=== PATIENT | female | born 1940 | race Caucasian/White ===

== ENCOUNTER → 2016-10-21 | Outpatient (CLI) | payer MEDICARE, BC ==
--- NOTE | 2016-10-22 08:49 | MM ---
Reason for exam: screening (asymptomatic). Baseline mammogram. History: Patient is postmenopausal. Physical Findings: Nurse Summary: 1 x 1cm nodule in the left breast at 1 o'clock (nurse ts). MG 3D Screening Mammo W/Cad Bilateral CC and MLO view(s) were taken. No prior studies available for comparison. There are scattered fibroglandular densities. Focal asymmetry in the left upper outer quadrant near palpable. This finding is changed when compared with previous exams. These results were verbally communicated with the patient and result sheet given to the patient on 10/21/16. ASSESSMENT: Incomplete: need additional imaging evaluation, BI-RAD 0 RECOMMENDATION: Ultrasound of the left breast.
--- NOTE | 2016-10-22 08:57 | USB ---
Reason for exam: additional evaluation requested from abnormal screening. History: Patient is postmenopausal. US Breast Workup Limited LT Left breast ultrasound demonstrates no cystic or solid lesion seen. These results were verbally communicated with the patient and result sheet given to the patient on 10/21/16. ASSESSMENT: Negative, BI-RAD 1 RECOMMENDATION: Follow-up diagnostic mammogram of the left breast in 6 months.
== END | disposition home or self-care (01) ==
LOC: RADMAMWWP 13:36
PROVIDERS: ATTEND Family Medicine
DX: Z12.31 Encounter for screening mammogram for malignant neoplasm of breast (principal)
CPT/HCPCS: 77063; 76642; G0202

== ENCOUNTER → 2017-04-28 | Outpatient (CLI) | payer MEDICARE, BC ==
--- NOTE | 2017-04-28 11:20 | EST ---
EXERCISE STRESS DATE OF SERVICE: 04/28/2017 AGE: 76 SEX: Female. HT: 67" WT: 156 PROTOCOL: Tan STAGE: II DURATION OF EXERCISE: 5 minutes HEART RATE REST: 97 BLOOD PRESSURE REST: 123/81 MAXIMUM HEART RATE ACHIEVED: 134 MAXIMUM BLOOD PRESSURE: 182/72 85% MPHR: 122 100% MPHR: 144 METS: 6 INDICATIONS: Shortness of breath. CLINICAL INFORMATION: Baseline EKG shows sinus rhythm, normal axis, normal intervals. Patient exercised on Tan protocol for a total of 5 minutes achieving 6 METs and 93% of predicted maximal heart rate without chest pain or diagnostic ST-segment depression. CONCLUSIONS: 1. Average exercise tolerance. 2. Negative stress test by EKG criteria. MMODL / IJN: [id number] /
== END | disposition home or self-care (01) ==
LOC: RADNMMAIN 10:07
PROVIDERS: ATTEND Family Medicine
DX: R06.00 Dyspnea, unspecified (principal)
CPT/HCPCS: 93017

== ENCOUNTER → 2017-05-03 | Outpatient (CLI) | payer MEDICARE, BC ==
--- NOTE | 2017-05-03 14:21 | MM ---
Reason for exam: follow-up at short interval from prior study. Last mammogram was performed 6 months ago. History: Patient is postmenopausal. Physical Findings: Nurse did not find any significant physical abnormalities on exam. MG 3D Diag Mammo W/Cad LT CC, MLO, spot compression MLO, and ML view(s) were taken of the left breast. Prior study comparison: October 21, 2016, bilateral MG 3d screening mammo w/cad. There are scattered fibroglandular densities. Global asymmetry persists in the left upper outer quadrant at a middle depth as compared to prior exam. However, this completely disperses on the second spot MLO view. These results were verbally communicated with the patient and result sheet given to the patient on 05/03/17. ASSESSMENT: Negative, BI-RAD 1 RECOMMENDATION: Return to routine screening mammogram schedule for both breasts. Back on schedule.
== END ==
LOC: RADMAMWWP 12:58
PROVIDERS: ATTEND Family Medicine
DX: R92.8 Other abnormal and inconclusive findings on diagnostic imaging of breast (principal)
CPT/HCPCS: G0206; G0279

== ENCOUNTER → 2018-08-31 | Outpatient (CLI) | payer MEDICARE, OTHER ==
--- NOTE | 2018-08-31 16:02 | BD ---
EXAMINATION TYPE: Axial Bone Density DATE OF EXAM: 08/31/2018 CLINICAL HISTORY: Height: 64.75 Weight: 148 FRAX RISK QUESTIONS: Alcohol (3 or more units per day): no Family History (Parent hip fracture): no Glucocorticoids (More than 3mos): no (Ex: prednisone, prednisolone, methylprednisolone, dexamethasone, and hydrocortisone). History of Fracture in Adulthood: no Secondary Osteoporosis: 1. Type 1 Diabetes: no 2. Hyperthyroidism: no 3. Menopause before 45: no, 46 4. Malnutrition: no 5. Chronic liver disease: no Rheumatoid Arthritis: no Current Tobacco Use: no RISK FACTORS HISTORY OF: Family History of Osteoporosis: no Active: yes Diet low in dairy products/other sources of calcium: no Postmenopausal woman: yes Take estrogen and/or progesterone medications: no Lost more than 2 inches in height since high school: possibly, states height was about 67.5 inches at one time Frequent falls: no Poor Health: no Hyperparathyroidism: no Adrenal Insufficiency: no MEDICATIONS: Thyroid Medications: no Osteoporosis Medications:no Additional Medications: calcium & Vitamin D Additional History: EXAM MEASUREMENTS: Bone mineral densitometry was performed using the [employer] System. Bone mineral density as measured about the Lumbar spine is: ----- L1-L4(G/cm2): 1.234 T Score Values are as follows: ----- L2: 0.4 ----- L3: 0.8 ----- L4: 0.7 ----- L1-L4: 0.5 Bone mineral density has: Increased 5.4% since study of: 08/06/2004 Bone mineral density about the R hip (g/cm2): 0.905 Bone mineral density about the L hip (g/cm2): 0.888 T Score values are as follows: -----R Neck: -1.0 -----L Neck: -1.1 -----R Total: -0.8 -----L Total: -0.3 Bone mineral density has: Decreased -10.1% since study of: 08/06/2004 IMPRESSION: No evidence for osteoporosis or osteopenia. NOTE: T-SCORE=SD OF THE YOUNG ADULT MEAN.
== END | disposition home or self-care (01) ==
LOC: RADBDWWP 11:03
PROVIDERS: ATTEND Family Medicine
DX: Z13.820 Encounter for screening for osteoporosis (principal)
CPT/HCPCS: 77080

== ENCOUNTER 2024-08-01 06:04 | Emergency (ER) | payer MEDICARE ==
--- NOTE | 2024-08-01 06:37 | ED ---
Weakness HPI - General Chief complaint: Weakness Stated complaint: Tremors Time Seen by Provider: 08/01/24 06:13 Source: patient, family, RN notes reviewed Mode of arrival: ambulatory Limitations: no limitations - History of Present Illness Initial comments: Patient is a 84 year old female presenting with weakness x 1-2 weeks. She states that she has been having lower abdominal pain that she describes as "the feeling when you get a phone call in the middle of the night and you don't know whats wrong", shaking, and chills. She states that she has had decreased appetite but has tried to have at least 1 water bottle a day, but that it is difficult. She notes that she has had this feeling before a few years ago and she had an "extensive UTI". She states she was seen at her PCP yesterday and had basic labs drawn and her "magenisum was low" and was told to take a supplement and she should "feel better instantly", but it did not help her symptoms. She denies fever, nausea, vomiting, diarrhea, constipation, chest pain, shortness of breath, back pain, dysuria, or urinary changes. She denies taking any prescription medications, or recent abdominal surgeries. - Related Data Home Medications Medication Instructions Recorded Confirmed Aspirin 81 mg PO DAILY 03/09/14 03/09/14 Ferrous Sulfate [Feosol] mg PO DAILY@1200 03/09/14 03/09/14 Multivitamins, Thera [Multivitamin] 1 each PO DAILY@1200 03/09/14 03/09/14 [place] Oil/[place]-3 Fatty Acids each PO 03/09/14 03/09/14 [Fish Oil 500 mg Softgel] Previous Rx's Medication Instructions Recorded Nitrofurantoin Monohyd/M-Cryst 100 mg PO Q12HR #20 cap 03/09/14 [Macrobid] Cephalexin [Keflex] 500 mg PO Q8HR #21 cap 08/01/24 Allergies Allergy/AdvReac Type Severity Reaction Status Date / Time No Known Allergies Allergy Verified 08/01/24 06:12 Review of Systems ROS Statement: Those systems with pertinent positive or pertinent negative responses have been documented in the HPI. ROS Other: All systems not noted in ROS Statement are negative. Past Medical History Past Medical History: No Reported History History of Any Multi-Drug Resistant Organisms: None Reported Past Surgical History: Adenoidectomy, Tonsillectomy Past Psychological History: No Psychological Hx Reported Smoking Status: Never smoker Past Alcohol Use History: None Reported Past Drug Use History: None Reported General Exam Limitations: no limitations General appearance: alert, in no apparent distress Head exam: Present: atraumatic, normocephalic, normal inspection Eye exam: Present: normal appearance, PERRL, EOMI. Absent: scleral icterus, conjunctival injection, periorbital swelling ENT exam: Present: normal exam, normal oropharynx, mucous membranes moist Neck exam: Present: normal inspection, full ROM. Absent: tenderness, meningismus, lymphadenopathy Respiratory exam: Present: normal lung sounds bilaterally. Absent: respiratory distress, wheezes, rales, rhonchi, stridor Cardiovascular Exam: Present: regular rate, normal rhythm, normal heart sounds. Absent: systolic murmur, diastolic murmur, rubs, gallop, clicks GI/Abdominal exam: Present: soft, tenderness (suprapubic ), normal bowel sounds. Absent: distended, guarding, rebound, rigid Back exam: Absent: CVA tenderness (R), CVA tenderness (L) Neurological exam: Present: alert, oriented X3, CN II-XII intact Psychiatric exam: Present: normal affect, normal mood Skin exam: Present: warm, dry, intact, normal color. Absent: rash Course Vital Signs 08/01/24 08/01/24 06:07 07:50 Temperature 97.6 F Pulse Rate 76 Respiratory 16 15 Rate Blood Pressure 148/79 O2 Sat by Pulse 99 Oximetry EKG Findings - EKG Comments: EKG Findings:: EKG performed at 6: 59 sinus rhythm first-degree block rate of 72 CA 226 QRS 77 QT/QTc 376/399 - EKG Results: EKG: interpreted by ERMD Medical Decision Making - Medical Decision Making Was pt. sent in by a medical professional or institution (, PA, CARDIAC/VASCULAR SONOGRAPHER, urgent care, hospital, or senior care...) When possible be specific @ -No Did you speak to anyone other than the patient for history (EMS, parent, family, police, friend...)? What history was obtained from this source @ -No Did you review nursing and triage notes (agree or disagree)? Why? @ -I reviewed and agree with nursing and triage notes Were old charts reviewed (outside hosp., previous admission, EMS record, old EKG, old radiological studies, urgent care reports/EKG's, senior care records)? Report findings @ -No old charts were reviewed Differential Diagnosis (chest pain, altered mental status, abdominal pain women, abdominal pain men, vaginal bleeding, weakness, fever, dyspnea, syncope, headache, dizziness, GI bleed, back pain, seizure, CVA, palpatations, mental health, musculoskeletal)? @ -Differential Abdominal Pain Women: Appendicitis, Cholecystitis, diverticulosis, ischemic bowel, pancreatitis, hepatitis, UTI, gastroenteritis, AAA, incarcerated hernia, bowel obstruction, constipation, inflammatory bowel, hepatitis, peptic ulcer disease, splenic infarction, perforated viscus, vulvitis, ovarian torsion, PID, kidney stone, placenta abruption, this is not meant to be an all-inclusive list EKG interpreted by me (3pts min.). @ -As above X-rays interpreted by me (1pt min.). @ -None done CT interpreted by me (1pt min.). @ -None done U/S interpreted by me (1pt. min.). @ -None done What testing was considered but not performed or refused? (CT, X-rays, U/S, labs)? Why? @ -None What meds were considered but not given or refused? Why? @ -None Did you discuss the management of the patient with other professionals (professionals i.e. , PA, CARDIAC/VASCULAR SONOGRAPHER, lab, RT, psych nurse, aids social worker, school resource officer, te acher, grants officer, bottle caser)? Give summary @ -No Was smoking cessation discussed for >3mins.? @ -No Was critical care preformed (if so, how long)? @ -No Were there social determinants of health that impacted care today? How? (Homelessness, low income, unemployed, alcoholism, drug addiction, transportation, low edu. Level, literacy, decrease access to med. care, intermediate, rehab)? @ -No Was there de-escalation of care discussed even if they declined (Discuss DNR or withdrawal of care, Hospice)? DNR status @ -No What co-morbidities impacted this encounter? (DM, HTN, Smoking, COPD, CAD, Cancer, CVA, ARF, Chemo, Hep., AIDS, mental health diagnosis, sleep apnea, morbid obesity)? @ -None Was patient admitted / discharged? Hospital course, mention meds given and route, prescriptions, significant lab abnormalities, going to OR and other pertinent info. @ -Discharge patient has evidence of UTI, laboratory studies otherwise unremarkable vitals are stable EKG unremarkable. Patient discharged after Rocephin on Keflex. Undiagnosed new problem with uncertain prognosis? @ -No Drug Therapy requiring intensive monitoring for toxicity (Heparin, Nitro, Insulin, Cardizem)? @ -No Were any procedures done? @ -No Diagnosis/symptom? @ -UTI Acute, or Chronic, or Acute on Chronic? @ -Acute Uncomplicated (without systemic symptoms) or Complicated (systemic symptoms)? @ -Uncomplicated Side effects of treatment? @ -No Exacerbation, Progression, or Severe Exacerbation? @ -No Poses a threat to life or bodily function? How? (Chest pain, USA, MT, pneumonia, PE, COPD, DKA, ARF, appy, cholecystitis, CVA, Diverticulitis, Homicidal, Suicidal, threat to staff... and all critical care pts) @ -No - Lab Data Result diagrams: 08/01/24 06:55 08/01/24 06:55 Lab Results 08/01/24 08/01/24 08/01/24 Range/Units 06:55 06:55 06:55 WBC 6.8 (3.8-10.6) k/uL RBC 4.38 (3.80-5.40) m/uL Hgb 13.3 (11.4-16.0) gm/dL Hct 41.2 (34.0-46.0) % MCV 94.0 (80.0-100.0) fL MCH 30.5 (25.0-35.0) pg MCHC 32.4 (31.0-37.0) g/dL RDW 12.7 (11.5-15.5) % Plt Count 345 (150-450) k/uL MPV 8.8 Neutrophils % 64 % Lymphocytes % 22 % Monocytes % 8 % Eosinophils % 2 % Basophils % 1 % Neutrophils # 4.4 (1.3-7.7) k/uL Lymphocytes # 1.5 (1.0-4.8) k/uL Monocytes # 0.5 (0-1.0) k/uL Eosinophils # 0.1 (0-0.7) k/uL Basophils # 0.1 (0-0.2) k/uL Sodium 137 (137-145) mmol/L Potassium 4.2 (3.5-5.1) mmol/L Chloride 103 (98-107) mmol/L Carbon Dioxide 29 (22-30) mmol/L Anion Gap 5 mmol/L BUN 24 H (7-17) mg/dL Creatinine 0.75 (0.52-1.04) mg/dL Est GFR (CKD-EPI)AfAm 85 (>60 ml/min/1.73 sqM) Est GFR (CKD-EPI)NonAf 74 (>60 ml/min/1.73 sqM) Glucose 112 H (74-99) mg/dL Calcium 9.6 (8.4-10.2) mg/dL Magnesium 2.2 (1.6-2.3) mg/dL Total Bilirubin 0.8 (0.2-1.3) mg/dL AST 23 (14-36) U/L ALT 14 (4-34) U/L Alkaline Phosphatase 71 (38-126) U/L Total Protein 6.7 (6.3-8.2) g/dL Albumin 4.0 (3.5-5.0) g/dL Urine Color Urine Appearance (Clear) Urine pH (5.0-8.0) Ur Specific [place] (1.001-1.035) Urine Protein (Negative) Urine Glucose (UA) (Negative) Urine Ketones (Negative) Urine Blood (Negative) Urine Nitrite (Negative) Urine Bilirubin (Negative) Urine Urobilinogen (<2.0) mg/dL Ur Leukocyte Esterase (Negative) Urine RBC (0-5) /hpf Urine WBC (0-5) /hpf Urine WBC Clumps (None) /hpf Ur Squamous Epith Cells (0-4) /hpf Urine Bacteria (None) /hpf Urine Mucus (None) /hpf Influenza Type A (PCR) Not Detected (Not Detectd) Influenza Type B (PCR) Not Detected (Not Detectd) RSV (PCR) Not Detected (Not Detectd) SARS-CoV-2 (PCR) Not Detected (Not Detectd) 08/01/24 Range/Units 07:50 WBC (3.8-10.6) k/uL RBC (3.80-5.40) m/uL Hgb (11.4-16.0) gm/dL Hct (34.0-46.0) % MCV (80.0-100.0) fL MCH (25.0-35.0) pg MCHC (31.0-37.0) g/dL RDW (11.5-15.5) % Plt Count (150-450) k/uL MPV Neutrophils % % Lymphocytes % % Monocytes % % Eosinophils % % Basophils % % Neutrophils # (1.3-7.7) k/uL Lymphocytes # (1.0-4.8) k/uL Monocytes # (0-1.0) k/uL Eosinophils # (0-0.7) k/uL Basophils # (0-0.2) k/uL Sodium (137-145) mmol/L Potassium (3.5-5.1) mmol/L Chloride (98-107) mmol/L Carbon Dioxide (22-30) mmol/L Anion Gap mmol/L BUN (7-17) mg/dL Creatinine (0.52-1.04) mg/dL Est GFR (CKD-EPI)AfAm (>60 ml/min/1.73 sqM) Est GFR (CKD-EPI)NonAf (>60 ml/min/1.73 sqM) Glucose (74-99) mg/dL Calcium (8.4-10.2) mg/dL Magnesium (1.6-2.3) mg/dL Total Bilirubin (0.2-1.3) mg/dL AST (14-36) U/L ALT (4-34) U/L Alkaline Phosphatase (38-126) U/L Total Protein (6.3-8.2) g/dL Albumin (3.5-5.0) g/dL Urine Color Colorless Urine Appearance Cloudy H (Clear) Urine pH 7.5 (5.0-8.0) Ur Specific [place] 1.009 (1.001-1.035) Urine Protein Negative (Negative) Urine Glucose (UA) Negative (Negative) Urine Ketones Negative (Negative) Urine Blood Negative (Negative) Urine Nitrite Positive H (Negative) Urine Bilirubin Negative (Negative) Urine Urobilinogen <2.0 (<2.0) mg/dL Ur Leukocyte Esterase Large H (Negative) Urine RBC 4 (0-5) /hpf Urine WBC 124 H (0-5) /hpf Urine WBC Clumps Rare H (None) /hpf Ur Squamous Epith Cells <1 (0-4) /hpf Urine Bacteria Many H (None) /hpf Urine Mucus Rare H (None) /hpf Influenza Type A (PCR) (Not Detectd) Influenza Type B (PCR) (Not Detectd) RSV (PCR) (Not Detectd) SARS-CoV-2 (PCR) (Not Detectd) Disposition Clinical Impression: UTI (urinary tract infection) Disposition: HOME SELF-CARE Condition: Stable Instructions (If sedation given, give patient instructions): Urinary Tract Infection in Women (ED) Additional Instructions: Please return to the Emergency Department if symptoms worsen or any other concerns. Prescriptions: Cephalexin [Keflex] 500 mg PO Q8HR #21 cap Is patient prescribed a controlled substance at d/c from ED?: No Referrals: Navid Maldonado DO [Primary Care Provider] - 1-2 days Time of Disposition: 08:15
[2024-08-01 07:16] LABS: Basophils # (A) 0.1 k/uL (0-0.2); Basophils % (A) 1 %; Eosinophils # (A) 0.1 k/uL (0-0.7); Eosinophils % (A) 2 %; HCT 41.2 % (34.0-46.0); HGB 13.3 gm/dL (11.4-16.0); Lymphocytes # (A) 1.5 k/uL (1.0-4.8); Lymphocytes % (A) 22 %; MCH 30.5 pg (25.0-35.0); MCHC 32.4 g/dL (31.0-37.0); Mean Platelet Volume 8.8; Monocytes # (A) 0.5 k/uL (0-1.0); Monocytes % (A) 8 %; Neutrophils # (A) 4.4 k/uL (1.3-7.7); Neutrophils % (A) 64 %; Platelet Count 345 k/uL (150-450); RBC 4.38 m/uL (3.80-5.40); RDW 12.7 % (11.5-15.5); WBC 6.8 k/uL (3.8-10.6)
[2024-08-01 07:34] LABS: ALT 14 U/L (4-34); AST 23 U/L (14-36); African American GFR (CKD) 85 (>60 ml/min/1.73 sqM); Alkaline Phosphatase 71 U/L (38-126); Anion Gap 5 mmol/L; Blood Urea Nitrogen 24 mg/dL (7-17); Calcium 9.6 mg/dL (8.4-10.2); Carbon Dioxide 29 mmol/L (22-30); Chloride 103 mmol/L (98-107); Glucose 112 mg/dL (74-99); Magnesium 2.2 mg/dL (1.6-2.3); Non-African American GFR(CKD) 74 (>60 ml/min/1.73 sqM); Potassium 4.2 mmol/L (3.5-5.1); Sodium 137 mmol/L (137-145); Total Bilirubin 0.8 mg/dL (0.2-1.3); Total Protein 6.7 g/dL (6.3-8.2)
[2024-08-01] MEDS: SODIUM CHLORIDE 0.9% 1,000 ML IV STA (07:47)
[2024-08-01 08:10] LABS: Appearance,Urine Cloudy (Clear); Bacteria,Urine Many /hpf; Bilirubin,Urine Negative (Negative); Blood,Urine Negative (Negative); Color,Urine Colorless; Glucose,Urine (UA) Negative (Negative); Ketones,Urine Negative (Negative); Leukocyte Esterase,Urine Large (Negative); Mucus,Urine Rare /hpf; Nitrite,Urine Positive (Negative); PH, Urine 7.5 (5.0-8.0); Protein,Urine Negative (Negative); RBC,Urine 4 /hpf (0-5); Specific Gravity,Urine 1.009 (1.001-1.035); Squamous Epithelial Cell,Urine <1 /hpf (0-4); Urobilinogen,Urine <2.0 mg/dL (<2.0); WBC,Urine 124 /hpf (0-5)
[2024-08-01] MEDS: cefTRIAXone IN SWFI 1,000 MG/10 ML SYRINGE IVP STA (08:34)
[2024-08-01 09:12] VITALS: BP 156/79; PULSE 70; RESP 20; TEMP 97.7
== END 2024-08-01 08:50 | disposition home or self-care (01) ==
LOC: EC 06:04
DX: N39.0 Urinary tract infection, site not specified (principal)
CPT/HCPCS: 36415; 93005; 80053; 83735; 85025; 81001; 87086; 87636; 99285; 96374; 96361; J0696

== ENCOUNTER 2024-08-03 01:25 | Observation (INO) | payer MEDICARE ==
[2024-08-03] MEDS ORDERED: NALOXONE 0.4 MG/ML 1 ML VIAL IV PRN (01:37)
[2024-08-03] MEDS ORDERED: IBUPROFEN 400 MG TAB PO PRN (01:37)
[2024-08-03] MEDS ORDERED: ONDANSETRON 4 MG/2 ML VIAL IVP PRN (01:37)
[2024-08-03] MEDS ORDERED: ACETAMINOPHEN TAB 325 MG TAB PO PRN (01:37)
--- NOTE | 2024-08-03 01:42 | ED ---
Female Urogenital HPI - General Chief complaint: Urogenital Stated complaint: weakness,shakes Time Seen by Provider: 08/03/24 01:37 Source: patient, RN notes reviewed, old records reviewed Mode of arrival: ambulatory Limitations: no limitations - History of Present Illness Initial comments: This is an 84-year-old male to reevaluation tremors shaking suspect rigors and fever with recent diagnosis of urinary tract infection. MD Complaint: dysuria, other (Shaking) Location: suprapubic Quality: cramping Consistency: constant Improves with: none Worsens with: none Patient : No Associated Symptoms: denies other symptoms - Related Data Home Medications Medication Instructions Recorded Confirmed Aspirin 81 mg PO DAILY 03/09/14 08/03/24 Multivitamins, Thera [Multivitamin 1 tab PO DAILY 03/09/14 08/03/24 (formulary)] Cholecalciferol (Vitamin D3) 50 mcg PO DAILY 08/03/24 08/03/24 [Vitamin D3 (50 Mcg = 2000 Iu)] Cranberry Fruit Extract [Cranberry] 500 mg PO DAILY 08/03/24 08/03/24 Magnesium Glycinate 100mg 1 cap PO DAILY 08/03/24 08/03/24 Magnesium Glycinate 100mg 2 cap PO HS 08/03/24 08/03/24 [place]-3/Dha/Epa/Fish Oil [Fish Oil 1 cap PO DAILY 08/03/24 08/03/24 1,000 mg Softgel] Oxymetazoline 0.05% Nasl [place] 1 spray NASAL TID 08/03/24 08/03/24 [Afrin 0.05% Nasal [place]] Vit C/E/Zn/Coppr/Lutein/Zeaxan 1 cap PO DAILY 08/03/24 08/03/24 [Preservision Areds 2 Softgel] Previous Rx's Medication Instructions Recorded ALPRAZolam [Xanax] 1 mg PO TID PRN 3 Days #9 tab 08/05/24 Amoxic-Pot Clav 875-125Mg 1 tab PO Q12HR 5 Days #10 tab 08/05/24 [Augmentin 875-125] Allergies Allergy/AdvReac Type Severity Reaction Status Date / Time No Known Allergies Allergy Verified 08/03/24 07:36 Review of Systems ROS Statement: Those systems with pertinent positive or pertinent negative responses have been documented in the HPI. ROS Other: All systems not noted in ROS Statement are negative. Past Medical History Past Medical History: No Reported History History of Any Multi-Drug Resistant Organisms: None Reported Past Surgical History: Adenoidectomy, Tonsillectomy Additional Past Surgical History / Comment(s): eye surgery (tear ducts) Past Psychological History: No Psychological Hx Reported Smoking Status: Never smoker Past Alcohol Use History: None Reported Past Drug Use History: None Reported - Past Family History Father Family Medical History: Myocardial Infarction ([place]) Mother Additional Family Medical History / Comment(s): pancreatic CA. Brother(s) Family Medical History: Coronary Artery Disease (CAD), CVA/TIA Sister(s) Family Medical History: Cancer, Coronary Artery Disease (CAD), Myocardial Infarction ([place]) General Exam Limitations: no limitations General appearance: alert, in no apparent distress Head exam: Present: atraumatic, normocephalic, normal inspection Eye exam: Present: normal appearance, PERRL, EOMI. Absent: scleral icterus, conjunctival injection, periorbital swelling ENT exam: Present: normal exam, mucous membranes moist Neck exam: Present: normal inspection. Absent: tenderness, meningismus, lymphadenopathy Respiratory exam: Present: normal lung sounds bilaterally. Absent: respiratory distress, wheezes, rales, rhonchi, stridor Cardiovascular Exam: Present: regular rate, normal rhythm, normal heart sounds. Absent: systolic murmur, diastolic murmur, rubs, gallop, clicks GI/Abdominal exam: Present: soft, normal bowel sounds. Absent: distended, tenderness, guarding, rebound, rigid Extremities exam: Present: normal inspection, full ROM, normal capillary refill. Absent: tenderness, pedal edema, joint swelling, calf tenderness Back exam: Present: normal inspection Neurological exam: Present: alert, oriented X3, CN II-XII intact Psychiatric exam: Present: normal affect, normal mood Skin exam: Present: warm, dry, intact, normal color. Absent: rash Course Vital Signs 08/03/24 08/03/24 08/03/24 01:30 05:50 08:06 Temperature 97.9 F 98.3 F 98.3 F Pulse Rate 77 72 73 Respiratory 18 18 16 Rate Blood Pressure 145/71 165/87 137/71 O2 Sat by Pulse 98 97 97 Oximetry 08/03/24 08/03/2408/03/25 09:30 16:24 21:58 Temperature Pulse Rate 74 80 70 Respiratory 18 20 18 Rate Blood Pressure 140/64 163/94 147/77 O2 Sat by Pulse 98 98 97 Oximetry 08/03/24 08/04/24 23:44 00:05 Temperature 97.8 F Pulse Rate 75 Respiratory 18 Rate Blood Pressure 144/84 O2 Sat by Pulse 98 Oximetry - Reevaluation(s) Reevaluation #1: 08/03/24 01:41 Records reviewed Reevaluation #2: 08/03/24 01:41 Patient symptoms unchanged Reevaluation #3: 08/03/24 01:41 Informed of results and questions answered Reevaluation #4: Was pt. sent in by a medical professional or institution ([facility] Garcia, [employer] [facility], urgent care, hospital, or assisted...) When possible be specific @ -no Did you speak to anyone other than the patient for history (EMS, parent, family, police, friend...)? What history was obtained from this source @ -no Did you review nursing and triage notes (agree or disagree)? Why? @ -agree Are old charts reviewed (outside hosp., previous admission, EMS record, old EKG, old radiological studies, urgent care reports/EKG's, assisted records)? Report findings @ -yes Differential Diagnosis (chest pain, altered mental status, abdominal pain women, abdominal pain men, vaginal bleeding, weakness, fever, dyspnea, syncope, headac he, dizziness, GI bleed, back pain, seizure, CVA, palpatations, mental health, musculoskeletal)? @ -prior EKG interpreted by me (3pts min.). @ -no X-rays interpreted by me (1pt min.). @ -no CT interpreted by me (1pt min.). @ -no U/S interpreted by me (1pt. min.). @ -no What testing was considered but not performed or refused? (CT, X-rays, U/S, labs)? Why? @ -none What meds were considered but not given or refused? Why? @ -none Did you discuss the management of the patient with other professionals (professionals i.e. ANA Garcia, [employer] [facility], lab, RT, psych nurse, social work supervisor, lumber hacker, teacher, admitting officer, shoe parts caser)? Give summary @ -no Was smoking cessation discussed for >3mins.? @ -no Was critical care preformed (if so, how long)? @ -no Were there social determinants of health that impacted care today? How? (Homelessness, low income, unemployed, alcoholism, drug addiction, transpo rtation, low edu. Level, literacy, decrease access to med. care, custodial, rehab)? @ -none Was there de-escalation of care discussed even if they declined (Discuss DNR or withdrawal of care, Hospice)? DNR status @ -no What co-morbidities impacted this encounter? (DM, HTN, Smoking, COPD, CAD, Cancer, CVA, ARF, Chemo, Hep., AIDS, mental health diagnosis, sleep apnea, morbid obesity)? @ -none Was patient admitted / discharged? Hospital course, mention meds given and route, prescriptions, significant lab abnormalities, going to OR and other pertinent info. @ - 84 female to be admitted for significant urinary tract infection shaking and tremors DischargeUndiagnosed new problem with uncertain prognosis? @ -no Drug Therapy requiring intensive monitoring for toxicity (Heparin, Nitro, Insulin, Cardizem)? @ -no Were any procedures done? @ -no Diagnosis/symptom? @ -UTI failed outpatient treatment Acute, or Chronic, or Acute on Chronic? @ -Acute Uncomplicated (without systemic symptoms) or Complicated (systemic symptoms)? @ -Complicated Side effects of treatment? @ -no Exacerbation, Progression, or Severe Exacerbation? @ -exacerbation Poses a threat to life or bodily function? How? (Chest pain, [place], [place], pneumonia, PE, COPD, DKA, ARF, appy, cholecystitis, CVA, Diverticulitis, Homicidal, Suicidal, threat to staff... and all critical care pts) @ -yes extremes of age Reevaluation #5: Differential Fever: Pneumonia, viral URI, endocarditis, myocarditis, pericarditis, otitis, sinusitis, peritonsillar Abscess, retropharyngeal Abscess, epiglottitis, peritonitis, appendicitis, Itzel cystitis, diverticulitis, hepatitis, colitis, UTI, PID, TOA, pyelonephritis, prostatitis, epididymitis, meningitis, encephalitis, pulmonary embolism, CVA, thyroid storm, pancreatitis, adrenal crisis, cavernous sinus thrombosis, this is not meant to be an all-inclusive list. - Consultations Consultation #1: Spoke with sound who agrees to admit the patient Medical Decision Making - Medical Decision Making 84 female to be admitted for significant urinary tract infection shaking and tremors - Lab Data Result diagrams: 08/04/24 04:36 08/04/24 04:36 Disposition Clinical Impression: UTI (urinary tract infection), Weakness Disposition: ADMITTED IP TO THIS HOSP Condition: Stable Is patient prescribed a controlled substance at d/c from ED?: No Time of Disposition: 02:00
[2024-08-03] MEDS: SODIUM CHLORIDE 0.9% 1,000 ML IV STA ×2 (02:00→03:23)
[2024-08-03] MEDS: ACETAMINOPHEN TAB 500 MG TAB PO STA (02:01)
[2024-08-03] MEDS: IBUPROFEN 600 MG TAB PO STA (02:01)
[2024-08-03] MEDS: KETOROLAC 15 MG/ML 1 ML VIAL IVP STA (02:02)
[2024-08-03] MEDS: ONDANSETRON 4 MG/2 ML VIAL IVP STA (02:04)
[2024-08-03] MEDS: LEVOFLOXACIN 750MG-D5W PMX 750 MG in DEXTROSE/WATER 1 150ML.BAG IVPB STA (02:37)
[2024-08-03] MEDS: SODIUM CHLORIDE 0.9% 500 ML 500 ML IV STA (02:39)
[2024-08-03 02:55] LABS: Basophils % (A) 1 %; Eosinophils # (A) 0.2 k/uL (0-0.7); Eosinophils % (A) 2 %; HGB 13.5 gm/dL (11.4-16.0); Lymphocytes # (A) 1.8 k/uL (1.0-4.8); Lymphocytes % (A) 27 %; MCHC 32.9 g/dL (31.0-37.0); MCV 94.4 fL (80.0-100.0); Monocytes # (A) 0.5 k/uL (0-1.0); Monocytes % (A) 8 %; Neutrophils # (A) 3.8 k/uL (1.3-7.7); Neutrophils % (A) 59 %; Platelet Count 334 k/uL (150-450); RBC 4.35 m/uL (3.80-5.40); RDW 12.6 % (11.5-15.5); WBC 6.5 k/uL (3.8-10.6)
[2024-08-03 03:10] LABS: ALT 15 U/L (4-34); AST 23 U/L (14-36); African American GFR (CKD) >90 (>60 ml/min/1.73 sqM); Albumin 4.3 g/dL (3.5-5.0); Alkaline Phosphatase 81 U/L (38-126); Anion Gap 9 mmol/L; Blood Urea Nitrogen 16 mg/dL (7-17); Calcium 9.6 mg/dL (8.4-10.2); Carbon Dioxide 26 mmol/L (22-30); Chloride 103 mmol/L (98-107); Glucose 114 mg/dL (74-99); Magnesium 2.3 mg/dL (1.6-2.3); Non-African American GFR(CKD) 81 (>60 ml/min/1.73 sqM); Phosphorus 2.7 mg/dL (2.5-4.5); Potassium 4.5 mmol/L (3.5-5.1); Sodium 138 mmol/L (137-145); Total Bilirubin 0.4 mg/dL (0.2-1.3); Total Protein 7.1 g/dL (6.3-8.2)
[2024-08-03] MEDS: SODIUM CHLORIDE 0.9% 1,000 ML IV SCH (03:12)
[2024-08-03 04:41] LABS: Appearance,Urine Clear (Clear); Bacteria,Urine Rare /hpf; Bilirubin,Urine Negative (Negative); Blood,Urine Small (Negative); Color,Urine Colorless; Glucose,Urine (UA) Negative (Negative); Ketones,Urine Negative (Negative); Leukocyte Esterase,Urine Trace (Negative); Nitrite,Urine Negative (Negative); PH, Urine 6.5 (5.0-8.0); Protein,Urine Negative (Negative); RBC,Urine <1 /hpf (0-5); Specific Gravity,Urine 1.002 (1.001-1.035); Urobilinogen,Urine <2.0 mg/dL (<2.0); WBC,Urine 4 /hpf (0-5)
--- NOTE | 2024-08-03 04:53 | P.HPIM ---
History of Present Illness H&P Date: 08/03/24 Patient is a 84-year-old female with no known PMH who presents to the emergency room for UTI. The patient reports that she had been in her usual state of health until this past [place] when she started to feel somewhat under the weather. She gradually developed shaking chills and generally feeling unwell. She also reports some urinary urgency and frequency but denied dysuria. She subsequently presented to the emergency room at [facility] on 08/01 where she was diagnosed with a UTI. She was given a dose of ceftriaxone to which she initially responded well and felt great for about 24 hours. She however was discharged on Keflex and despite compliance with the medication, her symptoms returned and she again developed shaking chills and generalized fatigue. The history is supplemented by the patient's daughter at the bedside who reports that the patient is usually fully independent and is able to perform all her ADLs without difficulty. She denied experiencing abdominal pain, chest pain, shortness of breath, nausea, vomiting, diarrhea. In the emergency room, lactic acid was 2.1 with WBC count 6.5 and hemoglobin 13.5. EKG revealed sinus rhythm first-degree block at [address]/T wave changes noted as reviewed by me. ED documentation reviewed and case discussed with ED provider. Review of systems: Pertinent positives and negatives as discussed in HPI, a complete review of systems was performed and all other systems are negative. Physical examination: Vital signs reviewed General: non toxic, no distress, appears at stated age, normal weight Derm: no unusual rashes/lesions, warm Head: atraumatic, normocephalic, symmetric Eyes: EOMI, no lid lag, anicteric sclera, pupils equal round reactive to light ENT: Nose and ears atraumatic Neck: No cervical lymphadenopathy, trachea midline, supple Mouth: no lip lesion, mucus membranes moist Cardiovascular: S1S2 reg, no murmur, positive dorsalis pedis pulse bilateral, no edema Lungs: CTA bilateral, no rhonchi, no rales, no accessory muscle use Abdominal: soft, nontender to palpation, no guarding Ext: muscle strength 5 out of 5 in all 4 extremities grossly, no gross muscle atrophy, no contractures, Neuro: CN II-XI grossly intact, no gross focal neuro deficits Psych: Alert, oriented, appropriate affect Assessment: UTI Lactic acidosis Imaging: EKG revealed sinus rhythm first-degree block at [address]/T wave changes noted as reviewed by me. Data Review: In the emergency room, lactic acid was 2.1 with WBC count 6.5 and hemoglobin 13.5. Plan: Continue with Levaquin 750 mg daily Follow-up urine and blood cultures Continue with IV fluid normal saline 75 mL/h Monitor lactic acid levels for resolution DVT prophylaxis: Lovenox subcu The patient is admitted with an anticipated fewer than 2 midnight stay for evaluation of UTI CODE STATUS: Full Code Discussed with: Patient Anticipated discharge place: Home Past Medical History Past Medical History: No Reported History History of Any Multi-Drug Resistant Organisms: None Reported Past Surgical History: Adenoidectomy, Tonsillectomy Additional Past Surgical History / Comment(s): eye surgery (tear ducts) Past Psychological History: No Psychological Hx Reported Smoking Status: Never smoker Past Alcohol Use History: None Reported Past Drug Use History: None Reported Medications and Allergies Home Medications Medication Instructions Recorded Confirmed Type Aspirin 81 mg PO DAILY 03/09/14 03/09/14 History Ferrous Sulfate [Feosol] mg PO DAILY@1200 03/09/14 03/09/14 History Multivitamins, Thera [Multivitamin] 1 each PO DAILY@1200 03/09/14 03/09/14 History Nitrofurantoin Monohyd/M-Cryst 100 mg PO Q12HR #20 cap 03/09/14 Rx [Macrobid] [place] Oil/[place]-3 Fatty Acids each PO 03/09/14 03/09/14 History [Fish Oil 500 mg Softgel] Cephalexin [Keflex] 500 mg PO Q8HR #21 cap 08/01/24 Rx Allergies Allergy/AdvReac Type Severity Reaction Status Date / Time No Known Allergies Allergy Verified 08/03/24 01:30 Physical Exam Vitals: Vital Signs Temp Pulse Resp BP Pulse Ox 08/03/24 01:30 97.9 F 77 18 145/71 98 Intake and Output 08/02/24 08/02/24 08/03/24 14:59 22:59 06:59 Other: Weight 64.41 kg Results CBC & Chem 7: 08/03/24 01:57 08/03/24 01:57 Labs: Abnormal Lab Results - Last 24 Hours (Table) 08/03/24 08/03/24 08/03/24 Range/Units 01:57 01:57 03:24 Glucose 114 H (74-99) mg/dL Plasma Lactic Acid Papo 2.1 H* (0.7-2.0) mmol/L Urine Blood Small H (Negative) Ur Leukocyte Esterase Trace H (Negative) Urine Bacteria Rare H (None) /hpf
[2024-08-03] MEDS: ENOXAPARIN 40 MG/0.4 ML SYRINGE SQ SCH (08:09)
[2024-08-04] MEDS: MELATONIN 5 MG TABLET PO SCH (00:14)
[2024-08-04] MEDS: LEVOFLOXACIN 750MG-D5W PMX 750 MG in DEXTROSE/WATER 1 150ML.BAG IVPB SCH (02:53)
[2024-08-04] MEDS: ALPRAZolam 0.25 MG TAB PO STA (05:38)
[2024-08-04] MEDS: ASPIRIN 81 MG PO SCH (08:45)
[2024-08-04 09:04] LABS: ALT 12 U/L (8-44); AST 18 U/L (13-35); Albumin 3.6 g/dL (3.8-4.9); Albumin/Globulin Ratio 1.71 Ratio (1.60-3.17); Alkaline Phosphatase 60 U/L (41-126); BUN/Creat Ratio 13.62 Ratio (12.00-20.00); Blood Urea Nitrogen 10.9 mg/dL (9.0-27.0); Calcium 8.8 mg/dL (8.7-10.3); Carbon Dioxide 23.9 mmol/L (21.6-31.8); Chloride 108 mmol/L (96-109); Globulin 2.1 g/dL (1.6-3.3); Glucose 112 mg/dL (70-110); Magnesium 2.3 mg/dL (1.5-2.4); Phosphorus 2.6 mg/dL (2.4-5.1); Potassium 4.1 mmol/L (3.5-5.5); Sodium 141 mmol/L (135-145); Total Bilirubin 0.3 mg/dL (0.3-1.2); Total Protein 5.7 g/dL (6.2-8.2)
[2024-08-04 10:18] LABS: Basophils # (A) 0.06 X 10*3/uL (0.00-0.10); Basophils % (A) 0.9 %; Eosinophils # (A) 0.19 X 10*3/uL (0.04-0.35); Eosinophils % (A) 2.9 %; HGB 11.7 g/dL (12.0-15.0); Lymphocytes % (A) 26.2 %; MCH 30.2 pg (27.0-32.0); MCHC 30.8 g/dL (32.0-37.0); MCV 97.9 FL (80.0-97.0); Mean Platelet Volume 11.8 FL (9.5-12.2); Monocytes # (A) 0.79 X 10*3/uL (0.20-1.00); Monocytes % (A) 12.2 %; NRBC Per 100 WBC 0 X 10*3/uL (0.00-0.01); Neutrophils # (A) 3.73 X 10*3/uL (1.80-7.70); Neutrophils % (A) 57.6 %; Platelet Count 286 X 10*3/uL (140-440); RBC 3.88 X 10*6/uL (4.10-5.20); RDW 13.2 % (11.5-14.5); WBC 6.48 X 10*3/uL (4.50-10.00)
--- NOTE | 2024-08-04 16:05 | P.PN ---
Subjective Progress Note Date: 08/04/24 Patient was seen and examined. She reports some rigors and chills overnight. Patient reports waking up with palpitations that last about 30 minutes which has been ongoing for the past 2 months. She denies any chest pain, shortness of breath or lightheadedness. CBC and BMP significant for RBC 3.88, Hg 11.7, MCV 97.9, glu 112, alb 3.6. Vital signs reviewed General: non toxic, no distress, appears at stated age, normal weight Derm: no unusual rashes/lesions, warm Head: atraumatic, normocephalic, symmetric Eyes: EOMI, no lid lag, anicteric sclera ENT: Nose and ears atraumatic Neck: No cervical lymphadenopathy, trachea midline, supple Mouth: no lip lesion, mucus membranes moist Cardiovascular: S1S2 reg, no murmur, no edema Lungs: CTA bilateral, no rhonchi, no rales, no accessory muscle use Ext: muscle strength 5 out of 5 in all 4 extremities grossly, no gross muscle atrophy, no contractures, Neuro: no gross focal neuro deficits Psych: Alert, oriented, appropriate affect UTI Palpitations Resolved: Lactic acidosis Continue Levaquin 750 mg IV QD for one more day. Obtain urine culture. Start telemetry monitoring. Recommend event monitor on discharge. Anticipate discharge in 1-2 days. FULL CODE. Lovenox SQ of DVT prophylaxis. Objective - Vital Signs Vital signs: Vital Signs Temp 98.3 F 08/04/24 13:03 Pulse 73 08/04/24 13:03 Resp 18 08/04/24 13:03 BP 144/78 08/04/24 13:03 Pulse Ox 98 08/04/24 13:03 FiO2 Intake & Output 08/03/24 08/04/24 08/04/24 18:59 06:59 18:59 Weight 64.41 kg Other: Voiding Method Toilet # Voids 3 - Labs CBC & Chem 7: 08/04/24 04:36 08/04/24 04:36 Labs: Abnormal Lab Results - Last 24 Hours (Table) 08/04/24 08/04/24 Range/Units 04:36 04:36 RBC 3.88 L (4.10-5.20) X 10*6/uL Hgb 11.7 L (12.0-15.0) g/dL MCV 97.9 H (80.0-97.0) FL MCHC 30.8 L (32.0-37.0) g/dL Glucose 112 H (70-110) mg/dL Total Protein 5.7 L (6.2-8.2) g/dL Albumin 3.6 L (3.8-4.9) g/dL Microbiology - Last 24 Hours (Table) 08/03/24 01:55 Blood Culture - Preliminary Blood
[2024-08-04 19:22] VITALS: RESP 16
[2024-08-04] MEDS: ZOLPIDEM 5 MG TAB PO PRN (21:55)
[2024-08-05 07:56] VITALS: BP 162/77; PULSE 72; TEMP 97.5
--- NOTE | 2024-08-05 09:18 | P.DS ---
Providers Date of admission: 08/03/24 01:40 Expected date of discharge: 08/05/24 Attending physician: Jonathon Arechiga MD Primary care physician: Navid [facility] Hospital Course: 84-year-old female with no known PMH who presents to the emergency room for UTI. The patient reports that she had been in her usual state of health until this past [place] when she started to feel somewhat under the weather. She gradually developed shaking chills and generally feeling unwell. She also reports some urinary urgency and frequency but denied dysuria. She subsequently presented to the emergency room at [facility] on 08/01 where she was diagnosed with a UTI. She was given a dose of ceftriaxone to which she initially responded well and felt great for about 24 hours. She however was discharged on Keflex and despite compliance with the medication, her symptoms returned and she again developed shaking chills and generalized fatigue. The history is supplemented by the patient's daughter at the bedside who reports that the patient is usually fully independent and is able to perform all her ADLs without difficulty. In the emergency room, lactic acid was 2.1 with WBC count 6.5 and hemoglobin 13.5. EKG revealed sinus rhythm first-degree block at [address]/T wave changes. Patient was started on Levaquin and admitted for further workup and management. UCx + Klebsiella. She reported palpitations intermittently ongoing for about a month. Usually happens at night which wakes her up lasting for about 30 minutes. Telemetry shows first degree AV block. Patient advised sleep study to rule out sleep apnea as a cause as well as Cardiology evaluation for possible event monitor. She reports Xanax did help which we will prescribe PRN for anxiety. 08/05 Patient was seen and examined. Doing well. No complaints. Discharge Plans: Augmentin x 5 days to complete a total of 7 days. Xanax 1 mg PO TID PRN anxiety. Advised of dependency and sedative potential. Follow up with PCP within 1-2 days, Pulmonary and Cardiology within 1 week of discharge. Vital signs reviewed General: non toxic, no distress, appears at stated age, normal weight Derm: no unusual rashes/lesions, warm Head: atraumatic, normocephalic, symmetric Eyes: EOMI, no lid lag, anicteric sclera ENT: Nose and ears atraumatic Neck: No cervical lymphadenopathy, trachea midline, supple Mouth: no lip lesion, mucus membranes moist Cardiovascular: S1S2 reg, no murmur, no edema Lungs: CTA bilateral, no rhonchi, no rales, no accessory muscle use Ext: muscle strength 5 out of 5 in all 4 extremities grossly, no gross muscle atrophy, no contractures, Neuro: no gross focal neuro deficits Psych: Alert, oriented, appropriate affect Discharge Diagnosis: UTI Palpitations Anxiety Resolved: Lactic acidosis Patient Condition at Discharge: Stable Plan - Discharge Summary Discharge Rx Participant: No New Discharge Prescriptions: New Amoxic-Pot Clav 875-125Mg [Augmentin 875-125] 1 tab PO Q12HR 5 Days #10 tab ALPRAZolam [Xanax] 1 mg PO TID PRN 3 Days #9 tab PRN Reason: Anxiety Continue Aspirin 81 mg PO DAILY Multivitamins, Thera [Multivitamin (formulary)] 1 tab PO DAILY Magnesium Glycinate 100mg 1 cap PO DAILY Magnesium Glycinate 100mg 2 cap PO HS Vit C/E/Zn/Coppr/Lutein/Zeaxan [Preservision Areds 2 Softgel] 1 cap PO DAILY Cranberry Fruit Extract [Cranberry] 500 mg PO DAILY Oxymetazoline 0.05% Nasl [place] [Afrin 0.05% Nasal [place]] 1 spray NASAL TID [place]-3/Dha/Epa/Fish Oil [Fish Oil 1,000 mg Softgel] 1 cap PO DAILY Cholecalciferol (Vitamin D3) [Vitamin D3 (50 Mcg = 2000 Iu)] 50 mcg PO DAILY Discharge Medication List Aspirin 81 mg PO DAILY 03/09/14 [History] Multivitamins, Thera [Multivitamin (formulary)] 1 tab PO DAILY 03/09/14 [History] Cholecalciferol (Vitamin D3) [Vitamin D3 (50 Mcg = 2000 Iu)] 50 mcg PO DAILY 08/03/24 [History] Cranberry Fruit Extract [Cranberry] 500 mg PO DAILY 08/03/24 [History] Magnesium Glycinate 100mg 1 cap PO DAILY 08/03/24 [History] Magnesium Glycinate 100mg 2 cap PO HS 08/03/24 [History] [place]-3/Dha/Epa/Fish Oil [Fish Oil 1,000 mg Softgel] 1 cap PO DAILY 08/03/24 [History] Oxymetazoline 0.05% Nasl [place] [Afrin 0.05% Nasal [place]] 1 spray NASAL TID 08/03/24 [History] Vit C/E/Zn/Coppr/Lutein/Zeaxan [Preservision Areds 2 Softgel] 1 cap PO DAILY 08/03/24 [History] ALPRAZolam [Xanax] 1 mg PO TID PRN 3 Days #9 tab 08/05/24 [Rx] Amoxic-Pot Clav 875-125Mg [Augmentin 875-125] 1 tab PO Q12HR 5 Days #10 tab 08/05/24 [Rx] Follow up Appointment(s)/Referral(s): Navid Maldonado DO [Primary Care Provider] - 1-2 days Discharge Disposition: HOME SELF-CARE
== END 2024-08-05 10:51 | disposition home or self-care (01) ==
LOC: EC 01:25 → INTOOBSV 01:40 → 5NMEDONC 01:40
PROVIDERS: ADMIT Internal Medicine; ATTEND Internal Medicine
DX: N39.0 Urinary tract infection, site not specified (principal); R00.2 Palpitations; F41.9 Anxiety disorder, unspecified; E87.20 Acidosis, unspecified; I44.0 Atrioventricular block, first degree; Z79.82 Long term (current) use of aspirin; Z79.899 Other long term (current) drug therapy
CPT/HCPCS: 96361 ×3; 96366 ×3; 96372 ×3; 96365; 96375; 99284; 80053 ×2; 83605; 83735 ×2; 84100 ×2; 85025 ×2; 81001; 87040; 87086; G0378 ×3; J3360; J2405; J1650 ×3; J1956 ×3; J1885